=== PATIENT | male | born 1985 | race Caucasian/White ===

== ENCOUNTER 2017-06-18 13:24 | Emergency (ER) | payer SELFPAY ==
[~2017-06-18] VITALS: Ht 180.3 cm; Wt 145.0 kg
[2017-06-18 14:19] VITALS: BP 156/95
== END 2017-06-18 14:38 | disposition home or self-care (01) ==
LOC: ER 14:07
DX: G51.0 Bell's palsy (principal); R03.0 Elevated blood-pressure reading, without diagnosis of hypertension
CPT/HCPCS: 82962; 99283